=== PATIENT | female | born 1980 | race Caucasian/White ===

== ENCOUNTER 2024-08-13 06:10 | Day surgery (SDC) | payer OTHER ==
[~2024-08-13 06:10] MED LIST: DOLOGESIC 500-1 EACH; NABUMETONE500 MG; SEPTRA DS
== END 2024-08-13 16:40 | disposition home or self-care (01) ==
LOC: CIR.AMB 06:10 → AMB-ENDOS 14:45 → CIR.AMB 16:40
PROVIDERS: ATTEND Internal Medicine
DX: K31.7 Polyp of stomach and duodenum (principal); K31.89 Other diseases of stomach and duodenum